=== PATIENT | female | born 1975 | race Two or more races ===

== ENCOUNTER 2023-08-01 21:48 | Emergency (ER) | payer MEDICAID ==
[~2023-08-01] VITALS: Ht 134.6 cm; Wt 65.6 kg
[2023-08-01 22:04] VITALS: BP 163/62; PULSE 82; RESP 18; TEMP 97.6; O2SAT 97
[2023-08-02] MEDS: InsuLIN REG 1unit/0.01ml Soln (100units/ml) IV ONE (00:30)
[2023-08-02 00:38] LABS: Urine Bacteria None Seen /hpf (None Seen)
[2023-08-02 00:52] LABS: Urine Blood Negative /uL (Negative); Urine Clarity Clear (Clear); Urine Color Light-Yellow (Yellow); Urine Protein, UAD Negative (Negative); Urine Urobilinogen Normal (Negative); Urine WBC 3 /hpf (0 - 5)
[2023-08-02 01:06] LABS: Basophils # (auto) 0 10 ^3/uL (0-0.2); Basophils % (auto) 0.5 % (0.0-2.0); Eosinophils # (auto) 0.1 10 ^3/uL (0-0.8); Eosinophils % (auto) 0.9 % (0.0-7.0); Hematocrit 38.1 % (36.0-46.0); Lymphocytes # (auto) 0.9 10 ^3/uL (0.4-5.4); Lymphocytes % (auto) 9.7 % (10.0-50.0); Mean Corpuscular Hemoglobin 29.1 pg (28.0-32.0); Mean Corpuscular Hgb Conc. 34.2 g/dL (32.0-36.0); Monocytes # (auto) 0.6 10 ^3/uL (0-1.3); Monocytes % (auto) 6.1 % (0.0-12.0); Neutrophils # (auto) 7.9 10 ^3/uL (1.6-8.6); Neutrophils % (auto) 82.8 % (37.0-80.0); Nucleated Red Blood Cells % 0.1 %; Red Blood Cells 4.48 10^6/uL (4.0-5.20); Red Cell Distribution Width 13.3 % (11.8-14.3); White Blood Cell 9.6 10^3/uL (4.4-10.8)
[2023-08-02 01:24] LABS: Alanine Aminotransferase 12 U/L (7-40); Albumin 4.4 g/dL (3.2-4.8); Alkaline Phosphatase 162 U/L (46-116); Anion Gap 8 (5-15); Aspartate Aminotransferase 9 U/L (13-40); BUN/Creatinine Ratio 14.7 (10.0-20.0); Bilirubin, Total 0.5 mg/dL (0.2-1.0); Blood Urea Nitrogen 11 mg/dL (9-23); Calcium 10.1 mg/dL (8.7-10.4); Carbon Dioxide 24 mmol/L (20-30); Chloride 102 mmol/L (98-107); Potassium 3.7 mmol/L (3.5-5.1); Sodium 134 mmol/L (136-145); Total Protein 7.4 g/dL (5.7-8.2)
[2023-08-02] MEDS: SODIUM CHLORIDE 0.9% 1,000 ML IV ONE (01:34)
[2023-08-02] MEDS: HYDROcodone-ACET 5/325MG TAB PO ONE (01:35)
[2023-08-02 01:42] LABS: Glucose 428 mg/dL (74-106)
[2023-08-02] MEDS ORDERED: HYDR-4902 PO (03:38)
[2023-08-02] MEDS ORDERED: BACDST PO (03:38)
[2023-08-02] MEDS ORDERED: CLIN-203 PO (03:38)
[2023-08-02] MEDS: CLINDAMYCIN 900MG IV 50 ML IV ONE (04:18)
== END 2023-08-02 07:28 | disposition home or self-care (01) ==
LOC: ER 21:48
DX: L02.31 Cutaneous abscess of buttock (principal); E11.65 Type 2 diabetes mellitus with hyperglycemia; Z79.899 Other long term (current) drug therapy
CPT/HCPCS: 36415; 80053; 81001; 82962; 85025; 96361; 96365; 96375; 99284; J1815; J3490; J7030